=== PATIENT | female | born 1995 | race Caucasian/White ===

== ENCOUNTER 2018-06-30 12:33 | Emergency (ER) | payer OTHER ==
[2018-06-30] MEDS ORDERED: Metoclopramide HCl 10 MG/2 ML VIAL ONE (13:03)
[2018-06-30] MEDS ORDERED: Acetaminophen 500 MG TAB ONE (13:03)
[2018-06-30] MEDS ORDERED: diphenhydrAMINE 25 MG CAP ONE (13:03)
--- NOTE | 2018-06-30 15:13 | CT ---
CT OF BRAIN PERFORMED WIHTOUT CONTRAST ENHANCEMENT: HISTORY: Headache. FINDINGS: The ventricular and cisternal system is within normal limits. There are no signs of intracerebral he morrhage or extraaxial fluid collections. The mastoid air cells and visualized sinuses are clear. IMPRESSION: No acute intracranial abnormalities. POS: [facility]
== END 2018-06-30 15:12 | disposition home or self-care (01) ==
LOC: ERS 12:33
DX: R51 Headache (principal)
CPT/HCPCS: 70450; 96365; 96366; J2765

== ENCOUNTER 2020-06-27 22:41 | Day surgery (SDC) | payer SELFPAY ==
[2020-06-27 23:19] VITALS: BMI 48.9
[2020-06-27] MEDS ORDERED: hydrALAZINE 20 MG/ML VIAL SLOW IVP PRN (23:31)
[2020-06-27] MEDS ORDERED: Ondansetron PF 4 MG/2 ML Vial IVP PRN (23:33)
[2020-06-27] MEDS ORDERED: Lactated Ringer's 1,000 ML IV SCH ×2 (23:45)
[2020-06-28 00:13] LABS: #Eosinphils 0.1 thou/uL (0.0-0.7); #Lymphocytes 1.9 thou/uL (1.20-3.40); #Neutrophils 8.4 thou/uL (1.40-6.50); %Basophils 0.4 % (0.0-1.0); %Lymphocytes 16.5 % (21.0-51.0); %Monocytes 8.5 % (0.0-10.0); %Neutrophils 73.6 % (42.0-75.0); Hemoglobin 10.8 g/dL (12.0-16.0); Mean Corpuscular HGB CONC 33.9 g/dL (32.0-36.0); Mean Corpuscular Hemoglobin 25.9 pg (27.0-31.0); Mean Corpuscular Volume 76.2 fL (78.0-98.0); Mean Platelet Volume 7.7 fL (7.4-10.4); Platelet Count 416 thou/uL (130-400); RBC Distribution Width 13.1 % (11.5-14.5); Red Blood Cell (RBC) Count 4.17 mill/uL (4.20-5.40); White Blood Cell (WBC) Count 11.4 thou/uL (4.8-10.8)
[2020-06-28 00:26] LABS: ALT (SGPT) 15 U/L (8-55); AST (SGOT) 15 U/L (5-34); Albumin 3.3 g/dL (3.5-5.0); Alkaline Phosphatase 130 U/L (40-110); Anion Gap 15 mmol/L (10-20); BUN (Urea Nitrogen) 6 mg/dL (7.0-18.7); Bilirubin, Total 0.2 mg/dL (0.2-1.2); Calc. Creatinine Clearance 256 mL/min (70-130); Calcium 9.2 mg/dL (7.8-10.44); Carbon Dioxide 19 mmol/L (22-29); Chloride 107 mmol/L (98-107); Estimated GFR-MDRD Greater than 90; Globulin 3.9 g/dL (2.4-3.5); Glucose 101 mg/dL (70-105); Potassium 3.5 mmol/L (3.5-5.1); Protein, Total 7.2 g/dL (6.0-8.3); Sodium 137 mmol/L (136-145)
[2020-06-28 01:54] LABS: Bacteria/HPF None Seen HPF (None Seen); Bilirubin Negative (Negative); Blood, Urine Negative (Negative); Clarity Clear (Clear); Glucose, Urine (Dipstick) Normal (Negative); Ketone, Urine Negative (Negative); Leukocyte Negative Leu/uL (Negative); Nitrite Negative (Negative); Protein, Urine (Dipstick) Negative (Neg-Trace); RBC/HPF 0-3 HPF (0-3); Specific Gravity, Urine 1.008 (1.002-1.036); Urobilinogen Normal mg/dL (Less than 2); WBC/HPF 0-3 HPF (0-3); pH, Urine 6.5 (5.0-9.0)
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
[2020-06-28] MEDS ORDERED: FLU VACC QS2020-21(6MOS UP)/PF 60 MCG/0.5 ML SYRINGE IM ONE (21:00)
== END 2020-06-28 03:00 | disposition home or self-care (01) ==
LOC: L&D/OP 22:41
PROVIDERS: ATTEND Obstetrics & Gynecology
DX: O21.2 Late vomiting of pregnancy (principal); O99.891 Other specified diseases and conditions complicating pregnancy; R19.7 Diarrhea, unspecified; O10.913 Unspecified pre-existing hypertension complicating pregnancy, third trimester; O34.219 Maternal care for unspecified type scar from previous cesarean delivery; Z3A.32 32 weeks gestation of pregnancy
CPT/HCPCS: 36415; 80053; 81003; 85025; 96360; 96361; 96375; 99283; J2405

== ENCOUNTER 2020-06-29 02:02 | Day surgery (SDC) | payer SELFPAY ==
[2020-06-29] MEDS ORDERED: hydrALAZINE 20 MG/ML VIAL SLOW IVP PRN (03:40)
[2020-06-29 03:46] VITALS: BP 122/59; TEMP 99
--- NOTE | 2020-06-29 04:27 | PRG ---
DATE OF SERVICE: 06/29/2020 PRIMARY OB: Dr. Mikal Cota. CHIEF COMPLAINT: Nausea, vomiting, and diarrhea. HISTORY OF PRESENT ILLNESS: The patient is a 25-year-old, G3, P2 female with an intrauterine at 32 weeks and 3 days, presenting with 1-week history of diarrhea, large volume watery that she reports happens about twice an hour. The patient has been able to keep fluids down for the most part and crackers. She was evaluated last night here in Labor and Delivery, at which time she was noted to have a white count of 11.4, hemoglobin of 10.8, hematocrit of 31.8, platelets of 416,000, sodium of 137, potassium of 3.5, BUN of 6, and creatinine of 0.7. AST and ALT , and the urinalysis with a normal specific gravity of 1.008 and no bacteria, no white blood cells. The patient yesterday was prescribed Zofran ODT, by her primary provider after being discharged here. She took two tablets around 2 o'clock and had no more issues with vomiting and was able to go to sleep around 10 o'clock last night and then woke up again around 12:30 with nausea and vomiting again, so she came here upon the instructions of her physician. The patient did not try re-dosing because of the vomiting that she was having. The patient reports that she continues to have diarrhea about two times an hour, again large volume watery diarrhea. She denies fever, headache, chest pain, shortness of breath, constipation, any new rashes, hip problems, knee problems, or muscle weakness. She denies vaginal bleeding, leakage of fluid, or change in discharge. She denies urinary urgency or frequency. PAST MEDICAL HISTORY: Chronic hypertension on labetalol, anxiety, and migraines. PAST SURGICAL HISTORY: She has had two deliveries. SOCIAL HISTORY: Denies drug, alcohol, or tobacco use. ALLERGIES: NO KNOWN DRUG ALLERGIES. MEDICATIONS: 1. Labetalol 100 mg that she takes twice a day. 2. vitamins. OB LABS: Blood type is O positive. Antibody screen is negative. VDRL is nonreactive. Hepatitis B surface antigen nonreactive. HIV nonreactive. GC and chlamydia are negative. She is rubella immune. Her diabetes screen is 132. REVIEW OF SYSTEMS: Per HPI. PHYSICAL EXAMINATION: VITAL SIGNS: Blood pressure is 139/81 followed by 122/59, heart rate of 89, respiratory rate of 20, saturating 99% on room air, and temperature 99.0. GENERAL: She appears to be in no acute distress. She is alert, oriented, cooperative, and pleasant to interact with. HEAD: Normocephalic and atraumatic. LUNGS: Clear to auscultation bilaterally. HEART: Has regular rate and rhythm. ABDOMEN: Gravid, soft, and nontender. EXTREMITIES: Nontender and nonedematous. : Has been deferred. LABORATORY DATA: heart tracing shows the fetus with a baseline in the 120s with moderate long-term variability, positive 15 x 15 accelerations, no decelerations. Tocometer may have some irritability, difficult to interpret. The patient declines an IV fluids or IM medications and has declined any medication during her stay here. ASSESSMENT AND PLAN: The patient is a 25-year-old female with nausea, vomiting, and diarrhea. We have confirm that she was given that ODT version of the Zofran at home, for which she can take under her tongue if she could not able to swallow it. Given the length and the volume of diarrhea she is experiencing, we have planning on empirically treating her with azithromycin 500 mg a day for the next 5 days. She has been asked to follow up with Dr. Cota, her primary OB in about 2 days. She is being given instructions to use the Zofran under her tongue if she feels like she cannot tolerate swallowing it due to the nausea and vomiting. The patient in general has been able to stay well hydrated based on her urinalysis and her personal reports of urination. She tolerates crackers and fluids most of the day. Fetus has a category 1 tracing and reactive NST. Again, the patient has been counseled to follow up with Dr. Cota in 2 days and is going home with a prescription of azithromycin 500 mg one tablet a day, #5. Fetus has a category 1 tracing and reactive NST. Job ID: [id number] [facility]
[2020-06-29] MEDS ORDERED: FLU VACC QS2020-21(6MOS UP)/PF 60 MCG/0.5 ML SYRINGE IM ONE (21:00)
== END 2020-06-29 03:35 | disposition home health service (06) ==
LOC: L&D/OP 02:02
PROVIDERS: ATTEND Obstetrics & Gynecology
DX: O21.2 Late vomiting of pregnancy (principal); O99.891 Other specified diseases and conditions complicating pregnancy; R19.7 Diarrhea, unspecified; O10.913 Unspecified pre-existing hypertension complicating pregnancy, third trimester; O34.219 Maternal care for unspecified type scar from previous cesarean delivery; Z3A.32 32 weeks gestation of pregnancy; Z79.899 Other long term (current) drug therapy
CPT/HCPCS: 99282

== ENCOUNTER 2020-07-28 11:24 | Day surgery (SDC) | payer SELFPAY ==
[2020-07-28 12:09] VITALS: BMI 50.1
[2020-07-28 12:41] LABS: #Basophils 0.1 thou/uL (0.0-0.2); #Eosinphils 0.3 thou/uL (0.0-0.7); #Lymphocytes 2.3 thou/uL (1.20-3.40); #Monocytes 1.1 thou/uL (0.11-0.59); #Neutrophils 6.9 thou/uL (1.40-6.50); %Basophils 0.8 % (0.0-1.0); %Lymphocytes 21.6 % (21.0-51.0); %Monocytes 9.9 % (0.0-10.0); %Neutrophils 64.8 % (42.0-75.0); Mean Corpuscular HGB CONC 32.3 g/dL (32.0-36.0); Mean Corpuscular Hemoglobin 24.5 pg (27.0-31.0); Mean Corpuscular Volume 75.8 fL (78.0-98.0); Platelet Count 376 thou/uL (130-400); RBC Distribution Width 13.9 % (11.5-14.5); Red Blood Cell (RBC) Count 4.11 mill/uL (4.20-5.40); White Blood Cell (WBC) Count 10.7 thou/uL (4.8-10.8)
[2020-07-28 13:01] LABS: ALT (SGPT) Less than 7 U/L (8-55); AST (SGOT) 13 U/L (5-34); Albumin 3.3 g/dL (3.5-5.0); Alkaline Phosphatase 155 U/L (40-110); Anion Gap 13 mmol/L (10-20); BUN (Urea Nitrogen) 11 mg/dL (7.0-18.7); Bilirubin, Total 0.2 mg/dL (0.2-1.2); Calc. Creatinine Clearance 248 mL/min (70-130); Calcium 9.2 mg/dL (7.8-10.44); Carbon Dioxide 21 mmol/L (22-29); Chloride 107 mmol/L (98-107); Estimated GFR-MDRD Greater than 90; Globulin 3.8 g/dL (2.4-3.5); Glucose 93 mg/dL (70-105); Potassium 4.2 mmol/L (3.5-5.1); Protein, Total 7.1 g/dL (6.0-8.3); Sodium 137 mmol/L (136-145)
[2020-07-28] MEDS: hydrALAZINE 20 MG/ML VIAL SLOW IVP PRN ×2 (13:02→13:38)
[2020-07-28 13:21] LABS: Creatinine, Urine 174.98 mg/dL (47-110)
[2020-07-28] MEDS ORDERED: hydrALAZINE 20 MG/ML VIAL SLOW IVP SCH (14:30)
[2020-07-28] MEDS ORDERED: hydrALAZINE 20 MG/ML VIAL SLOW IVP PRN (14:30)
[2020-07-28] MEDS ORDERED: Labetalol 100 MG TAB PO SCH (14:30)
[2020-07-28] MEDS ORDERED: Betamet Acet/Betamet Na Ph 30 MG/5 ML VIAL IM SCH (15:00)
[2020-07-29] MEDS ORDERED: FLU VACC QS2020-21(6MOS UP)/PF 60 MCG/0.5 ML SYRINGE IM ONE (12:15)
== END 2020-07-28 18:01 | disposition home or self-care (01) ==
LOC: L&D/OP 11:24
PROVIDERS: ATTEND Obstetrics & Gynecology
DX: O13.9 Gestational [pregnancy-induced] hypertension without significant proteinuria, unspecified trimester (principal); O09.219 Supervision of pregnancy with history of pre-term labor, unspecified trimester; O34.219 Maternal care for unspecified type scar from previous cesarean delivery; Z3A.00 Weeks of gestation of pregnancy not specified; Z79.899 Other long term (current) drug therapy
CPT/HCPCS: 36415; 80053; 82570; 84156; 85025; J0360; J0702

== ENCOUNTER 2020-07-29 14:58 | Inpatient (IN) | payer OTHER, SELFPAY ==
[2020-07-29] MEDS ORDERED: Betamet Acet/Betamet Na Ph 30 MG/5 ML VIAL IM SCH (15:15)
[2020-07-29 15:53] VITALS: BMI 50.1
[2020-07-29] MEDS ORDERED: hydrALAZINE 20 MG/ML VIAL ONE (16:38)
[2020-07-29] MEDS ORDERED: Bicitra 30 ML UDCUP PO PRN (16:50)
[2020-07-29] MEDS ORDERED: Magnesium Sulfate 20 gm/500 ml 20 GM/500 ML BAG ONE (16:50)
[2020-07-29] MEDS ORDERED: Famotidine/PF 20 mg/2ml Vial SLOW IVP PRN (16:50)
[2020-07-29] MEDS ORDERED: Ondansetron PF 4 MG/2 ML Vial IVP PRN ×4 (16:52→19:46)
[2020-07-29] MEDS ORDERED: hydrALAZINE 20 MG/ML VIAL SLOW IVP PRN ×2 (16:52→19:46)
[2020-07-29] MEDS ORDERED: CEFAZOLIN 2 GM in Premix Bag 1 BAG IVPB SCH (17:00)
[2020-07-29] MEDS ORDERED: Labetalol HCl 100 MG/20 ML VIAL ONE (17:08)
[2020-07-29] MEDS ORDERED: Morphine PF 10 MG/10 ML VIAL ONE (17:09)
[2020-07-29] MEDS ORDERED: Labetalol HCl 100 MG/20 ML VIAL SLOW IVP PRN ×2 (17:10→17:19)
[2020-07-29] MEDS ORDERED: Ondansetron PF 4 MG/2 ML Vial ONE (17:10)
[2020-07-29] MEDS ORDERED: PHENYLEPHRINE-NS 100 MCG/ML 10 ML SYRINGE ONE (17:10)
[2020-07-29] MEDS ORDERED: Oxytocin 10 UNITS/ML VIAL ONE (17:10)
[2020-07-29] MEDS ORDERED: Dexamethasone 4 mg/ml Vial ONE (17:10)
[2020-07-29] MEDS ORDERED: Meperidine HCl/PF 25 MG/ML VIAL SLOW IVP PRN ×2 (17:22→19:21)
[2020-07-29] MEDS ORDERED: Naloxone HCl 0.4 mg/ml Vial IV PRN ×2 (17:22→19:21)
[2020-07-29] MEDS ORDERED: Naloxone HCl 0.4 mg/ml Vial IVP PRN ×4 (17:22→19:21)
[2020-07-29] MEDS ORDERED: Ketorolac Tromethamine 30 MG/ML VIAL IVP PRN ×2 (17:22→19:21)
[2020-07-29] MEDS ORDERED: HYDROmorphone 2 MG/ML VIAL SLOW IVP PRN ×2 (17:22→19:21)
[2020-07-29] MEDS ORDERED: Ondansetron HCl/PF 4 MG/2 ML Vial IVP PRN ×2 (17:22→19:21)
[2020-07-29] MEDS ORDERED: L&D-Morphine 4 MG/ML VIAL SLOW IVP PRN ×2 (17:22→19:21)
[2020-07-29] MEDS ORDERED: diphenhydrAMINE 50 MG/ML VIAL IVP PRN ×2 (17:22→19:21)
[2020-07-29] MEDS ORDERED: Promethazine HCl 25 MG/ML VIAL IM PRN ×3 (17:22→19:46)
[2020-07-29] MEDS ORDERED: Promethazine HCl 25 MG SUPP PR PRN ×2 (17:22→19:21)
[2020-07-29] MEDS ORDERED: Communication Order-Pharmacy FS SCH ×2 (17:30→19:30)
[2020-07-29] MEDS ORDERED: Ketorolac Tromethamine 30 MG/ML VIAL IVP SCH ×2 (17:30→19:30)
[2020-07-29 17:36] LABS: Hemoglobin 9.6 g/dL (12.0-16.0); Mean Corpuscular HGB CONC 31.6 g/dL (32.0-36.0); Mean Corpuscular Volume 75.9 fL (78.0-98.0); Mean Platelet Volume 8.4 fL (7.4-10.4); Platelet Count 401 thou/uL (130-400); RBC Distribution Width 14.1 % (11.5-14.5); Red Blood Cell (RBC) Count 4.02 mill/uL (4.20-5.40); White Blood Cell (WBC) Count 12.8 thou/uL (4.8-10.8)
--- NOTE | 2020-07-29 17:39 | PDOC.LDHP ---
Labor and Delivery H&P HPI: 25 y/o at 36 and 5/7 weeks, followed for morbid obesity, CHTN, Previous x 2, presents for 2nd dose of steroids today, but repeat blood pressures hers in severe range, and quickly deteriorating. We will proceed with tonight. Current gestational age (weeks): 36 Due date: 08/21/02 Grav: 3 Para: 2 Current complications: hypertension, other (Morbid Obesity) Current medications: pre-mildred vitamins, other (Labetolol 100mg po BID) Previous surgical history: low tranverse CS Allergies/Adverse Reactions: Allergies Allergy/AdvReac Type Severity Reaction Status Date / Time No Known Allergies Allergy Verified 07/29/20 15:50 Social history: none - Physical Exam Vital signs reviewed and normal: yes General: NAD, resting Heart: RRR Lungs: CTAB Abdomen: gravid Extremeties: no edema FHT: category 1 - Assessment L&D Assessment: scheduled repeat section - Plan Plan: admit to L&D, to OR for section, magnesium for seizure prophylaxis
[2020-07-29 18:08] LABS: HBSAg Index 0.16 S/CO (0-0.99); Hep B Surf Ag Non-Reactive S/CO (NonReactive); Syphilis Antibody Nonreactive (Nonreactive); Syphilis Antibody Index 0.03 S/CO (<1.00 Non-Reactive)
[2020-07-29 18:35] LABS: SARS-CoV-2 NAA Rapid Test Not Detected (NotDetected)
[2020-07-29] MEDS ORDERED: Lanolin Ointment 7 GM TUBE TOP PRN (19:46)
[2020-07-29] MEDS ORDERED: Misoprostol 200 MCG TAB PR PRN (19:46)
[2020-07-29] MEDS ORDERED: Bisacodyl 10 MG SUPP PR PRN (19:46)
[2020-07-29] MEDS ORDERED: Simethicone Chewable 80 MG TAB PO PRN (19:46)
[2020-07-29] MEDS ORDERED: NS / Oxytocin 40 units/1000ml 1,000 ML IV SCH (20:00)
[2020-07-29] MEDS: Docusate Calcium (SURFAK) 240 MG CAP PO SCH (23:00)
[2020-07-30] MEDS ORDERED: Magnesium Sulfate 20 gm/500 ml 20 GM/500 ML BAG IVPB PRN (01:30)
[2020-07-30] MEDS ORDERED: Magnesium Sulfate 20 gm/500 ml 4 GM/100 ML BAG IVPB ONE (01:30)
[2020-07-30] MEDS ORDERED: Calcium Gluc 4.6 MEQ/10 ML (100 MG/ML) IV PRN (01:30)
[2020-07-30] MEDS ORDERED: Enoxaparin Sodium 40 MG/0.4 ML SYRINGE SC SCH (04:00)
[2020-07-30 06:47] LABS: Hemoglobin 8.3 g/dL (12.0-16.0); Mean Corpuscular HGB CONC 32.1 g/dL (32.0-36.0); Mean Corpuscular Hemoglobin 24.3 pg (27.0-31.0); Mean Corpuscular Volume 75.7 fL (78.0-98.0); Platelet Count 411 thou/uL (130-400); RBC Distribution Width 14.2 % (11.5-14.5); White Blood Cell (WBC) Count 15.9 thou/uL (4.8-10.8)
[2020-07-30] MEDS ORDERED: HYDROcodone/Acetaminophen 5/325 mg Tablet PO PRN ×2 (07:30)
[2020-07-30] MEDS ORDERED: Measles/Mumps/Rubella 10 MCG/0.5 ML VIAL SC ONE (09:00)
[2020-07-30] MEDS ORDERED: Adacel (T-DAP) 0.5 ML SYRINGE IM ONE (09:00)
[2020-07-30] MEDS ORDERED: FLU VACC QS2020-21(6MOS UP)/PF 60 MCG/0.5 ML SYRINGE IM ONE (09:00)
[2020-07-30] MEDS ORDERED: Varicella virus, LIVE 0.5 ML VIAL SC ONE (09:00)
[2020-07-30 10:00] LABS: Calc. Creatinine Clearance 239 mL/min (70-130)
[2020-07-30] MEDS: Enoxaparin Sodium 40 MG/0.4 ML SYRINGE SC SCH (10:34)
[2020-07-30] MEDS: Docusate Calcium (SURFAK) 240 MG CAP PO SCH ×2 (10:36→22:11)
[2020-07-30] MEDS: Ibuprofen 800 MG TAB PO SCH ×2 (13:17→22:11)
[2020-07-30] MEDS: Labetalol 100 MG TAB PO SCH (14:12)
--- NOTE | 2020-07-30 17:04 | PDOC.PP ---
Post Progress Note Post Day #: 1 PO intake tolerated: yes Flatus: yes Ambulation: yes Vital Signs (12 hours) Temp Pulse Resp BP Pulse Ox 07/30/20 15:45 98.0 F 84 16 124/63 100 07/30/20 14:12 86 Weight Weight 301 lb - Physical Examination General: NAD Cardiovascular: no m/r/g, RRR Respiratory: clear to auscultation bilaterally, non-labored breathing Abdominal: + bowel sounds, lochia, no distention, appropriately TTP Extremities: negative homans (B) Skin: CS incision dry & intact, no rash Neurological: no gross focal deficits (Patient looks remarkably stable and back to baseline in just 24 hours. Magnesium is DC'ed. Possible DC to home tomorrow. Clinic F/U in 72 hours.) Psychiatric: A&Ox3, normal affect Result Diagrams: 07/30/20 06:35 07/30/20 09:27 Additional Labs: Post Labs Hep Bs Antigen Non-Reactive S/CO (NonReactive) 07/29/20 17:08 Blood Type O POSITIVE 07/29/20 17:26
--- NOTE | 2020-07-30 23:12 | OP ---
DATE OF PROCEDURE: 07/29/2020 SURGEON: Mikal Cota MD PREOPERATIVE DIAGNOSES: 1. Intrauterine at 36 weeks and 5 days with a history of chronic hypertension which quickly escalated to severe preeclampsia. 2. Hypertensive crisis. POSTOPERATIVE DIAGNOSES: 1. Intrauterine at 36 weeks and 5 days with a history of chronic hypertension which quickly escalated to severe preeclampsia. 2. Hypertensive crisis. PROCEDURE PERFORMED: Repeat low-transverse section. FINDINGS: Viable male infant weighing 3067 g or 6 pounds 12 ounces. Apgars 8 and 9. QUANTITATIVE BLOOD LOSS: 135 mL. COMPLICATIONS: None. DETAILS OF THE PROCEDURE: The patient was consented and taken back to the operating room where spinal anesthesia was found to be adequate. She was then prepped and draped in the normal sterile fashion. A timeout was performed by the entire operative team. The incision was then marked with a marking pen tested using sharp pickups. An incision was then made with a scalpel. The incision was carried through the adipose tissue down to the underlying rectus fascia using both sharp dissection as well as cautery. Once the fascia was identified, it was incised in the midline and then the fascial incision was carried through in both lateral directions using sharp as well as cautery dissection techniques. Next, the superior aspect of the rectus fascia was grasped with 2 Vincent clamps, which was tented up and the rectus muscles were dissected off using blunt dissection as well as cautery dissection. Similarly, the inferior aspect of the fascial incision was grasped with 2 Vincent clamps, tented up and the rectus muscles were dissected off bluntly as well as sharply. Next, the rectus muscles were in the midline and the peritoneum identified. The peritoneum was then carefully grasped with 2 hemostats and entered sharply. The peritoneal incision was extended superiorly and inferiorly and bladder blade was placed in the lower abdomen. At this point, the uterus was identified and the bladder flap was then developed using pickups with teeth as well as Metzenbaum scissors in both lateral directions. The bladder flap was then dissected downwards using the photoengraving machine operator/tender's finger as well as Metzenbaum scissors. The bladder blade was replaced. The lower uterine segment was then identified and entered sharply using a clean scalpel. The uterine incision was then dissected downwards until thin layer of muscle remained and this was entered bluntly using a hemostat to avoid any injury to the baby. The uterine incision was then stretched using two fingers in both lateral directions. An amniotomy was performed artificially using a hemostat and the baby was delivered using fundal pressure in a gentle fashion. Once out, the baby's mouth and nose were bulb suctioned, cord clamped and cut, and the baby was handed to waiting attendants. Next, the uterus was exteriorized, cleared of all clots and debris and the uterine incision was repaired with #1 Monocryl in a running locking fashion. A 2nd suture of the same type was used to obtain complete hemostasis at the uterine incision. The bladder flap was reapproximated using 3-0 Monocryl. Next, patient's left and right adnexa were inspected and appeared to be within normal limits. The posterior cul-de-sac was blotted dry and hemostasis assured. One more look at the uterine incision demonstrated hemostasis. Next, the uterus was replaced back within the abdomen. The peritoneum was reapproximated using 2-0 Monocryl without difficulty. The rectus muscles were then allowed to come back together and 0 chromic was used to aid in reapproximation of the muscle as necessary. The rectus fascia was then reapproximated in a running fashion using 0 Vicryl suture. The adipose tissue was then examined and appeared to be well approximated without any obvious separations. Finally, the skin was reapproximated with 3-0 Monocryl on a Fili needle without difficulty and Dermabond adhesive was applied to the skin. Once the glue was dry, the drapes were removed and the patient was transferred to an ambulatory bed where she was taken to recovery awake and in stable condition. Sponge, lap, and needle counts were correct x3. Job ID: [id number] [facility]
[2020-07-31] MEDS: Labetalol 100 MG TAB PO SCH ×2 (01:04→14:22)
[2020-07-31] MEDS: Ibuprofen 800 MG TAB PO SCH ×2 (05:38→14:22)
[2020-07-31] MEDS ORDERED: Ibuprofen 800 MG TAB PO SCH (06:00)
[2020-07-31] MEDS: Docusate Calcium (SURFAK) 240 MG CAP PO SCH (09:22)
[2020-07-31] MEDS: Enoxaparin Sodium 40 MG/0.4 ML SYRINGE SC SCH (09:28)
[2020-07-31 16:59] VITALS: BP 137/68; TEMP 98.4
--- NOTE | 2020-08-03 03:52 | PQF ---
CLINICAL DOCUMENTATION CLARIFICATION FORM: Dear : Mikal Cota Date / Time: 08/03/2020350 Please exercise your independent, professional judgment in responding to the clarification form. Clinical indicators are provided on the bottom of this form for your review In your clinical opinion based on clinical findings below, can you please specify hypertensive crisis if: Please check appropriate box(es): [ ] Emergency [ ] Urgency [ x] Other diagnosis, please specify severe preeclampsia [ ] Unable to determine Physician Signature: Date/Time: For continuity of documentation, please document condition throughout progress notes and discharge summary. Thank You. To be completed by CDI/Coding staff for physician review: Present Clinical Indicators - Signs / Symptoms / Labs Results and Location in Medical Record [X] Pulse 83, Resp 16, Temp 98.3 Vital signs 07/29 [X] BP 156/92; 115/60; 124/63; 109/53; 144/73 Vital signs 07/29-07/30 [X] Hypertensive Crisis Operative report p 07/29 Dr Cota [X] blood pressure in severe range and quickly deteriorating H&P p1 07/29 Dr Cota Present Risk Factors Results and Location in Medical Record [X] 36 weeks IUP Operative report p 07/29 Dr Cota [X] Hx of Chronic HTN with quickly escalated to severe pre-eclampsia Operative report p 07/29 Dr Cota [X] s/p CS Operative report p 12 Dr Cota [X] Morbid obesity H&P p1 / Dr Cota Present Treatments Results and Location in Medical Record [X] IV Magnesium Sulfate 4 gm NOV 05 [X] IV Normodyne 40 mg NOV 05 [X] IV Apresolone 20 mg NOV 05 CDS/It Teacher Signature: Indira Elaine Phone #: [phone] Date/Time: 08/03/2020350 This is a permanent part of the Medical Record [facility]
== END 2020-07-31 17:10 | disposition home or self-care (01) | DRG 787 ==
LOC: L&D/OP 14:58 → L&D 16:51 → 3SW 07-30 16:12
PROVIDERS: ADMIT Obstetrics & Gynecology; ATTEND Obstetrics & Gynecology
PROC: 10D00Z1 Extraction of Products of Conception, Low, Open Approach (ICD-10-PCS; principal; 2020-07-29)
DX: O11.4 Pre-existing hypertension with pre-eclampsia, complicating childbirth (principal); I16.9 Hypertensive crisis, unspecified; Z3A.36 36 weeks gestation of pregnancy; Z37.0 Single live birth; O34.211 Maternal care for low transverse scar from previous cesarean delivery; Z20.828 Contact with and (suspected) exposure to other viral communicable diseases; O99.214 Obesity complicating childbirth; E66.01 Morbid (severe) obesity due to excess calories; O10.02 Pre-existing essential hypertension complicating childbirth; O99.42 Diseases of the circulatory system complicating childbirth; Z28.21 Immunization not carried out because of patient refusal
CPT/HCPCS: 36415; 51702; 82565; 85027; 86780; 86850; 86900; 86901; 87340; 99285; J0360; J0690; J1100; J1200; J1650; J2270; J2405; J3475; U0002

== ENCOUNTER 2020-08-01 15:55 | Inpatient (IN) | payer OTHER ==
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
[2020-08-01 16:35] VITALS: BMI 54.5
[2020-08-01] MEDS ORDERED: hydrALAZINE 20 MG/ML VIAL ONE (16:46)
[2020-08-01] MEDS ORDERED: Ondansetron PF 4 MG/2 ML Vial IVP PRN (16:56)
[2020-08-01] MEDS ORDERED: hydrALAZINE 20 MG/ML VIAL SLOW IVP PRN (16:56)
[2020-08-01] MEDS ORDERED: Docusate 100 MG CAP PO PRN (16:56)
[2020-08-01] MEDS ORDERED: Promethazine HCl 25 MG/ML VIAL IM PRN (16:56)
[2020-08-01] MEDS ORDERED: Calcium Gluconate 4.6 MEQ in Sodium Chloride 0.9% 100 ML IVPB PRN (16:56)
[2020-08-01] MEDS ORDERED: Magnesium Sulfate 20 GM/WATER 500 ML BAG IVPB SCH (17:00)
[2020-08-01] MEDS ORDERED: Magnesium Sulfate 20 gm/500 ml 20 GM/500 ML BAG ONE (17:26)
[2020-08-01] MEDS: Lactated Ringer's 1,000 ML IV SCH (17:42)
[2020-08-01] MEDS: Magnesium Sulfate 20 gm/500 ml 20 GM/500 ML BAG IVPB SCH (17:50)
[2020-08-01 17:56] LABS: #Basophils 0.1 thou/uL (0.0-0.2); #Eosinphils 0.4 thou/uL (0.0-0.7); #Lymphocytes 2.8 thou/uL (1.20-3.40); #Monocytes 1.2 thou/uL (0.11-0.59); #Neutrophils 7.8 thou/uL (1.40-6.50); %Basophils 0.6 % (0.0-1.0); %Eosinophils 3.1 % (0.0-10.0); %Lymphocytes 22.9 % (21.0-51.0); %Monocytes 9.6 % (0.0-10.0); %Neutrophils 63.8 % (42.0-75.0); Hemoglobin 8.3 g/dL (12.0-16.0); Mean Corpuscular HGB CONC 32.1 g/dL (32.0-36.0); Mean Corpuscular Hemoglobin 24.5 pg (27.0-31.0); Mean Corpuscular Volume 76.4 fL (78.0-98.0); Mean Platelet Volume 7.7 fL (7.4-10.4); Platelet Count 440 thou/uL (130-400); RBC Distribution Width 14.5 % (11.5-14.5); Red Blood Cell (RBC) Count 3.37 mill/uL (4.20-5.40); White Blood Cell (WBC) Count 12.2 thou/uL (4.8-10.8)
[2020-08-01 18:17] LABS: ALT (SGPT) 20 U/L (8-55); AST (SGOT) 23 U/L (5-34); Albumin 3.3 g/dL (3.5-5.0); Alkaline Phosphatase 106 U/L (40-110); Anion Gap 14 mmol/L (10-20); BUN (Urea Nitrogen) 20 mg/dL (7.0-18.7); Bilirubin, Total 0.2 mg/dL (0.2-1.2); Calc. Creatinine Clearance 252 mL/min (70-130); Carbon Dioxide 25 mmol/L (22-29); Chloride 103 mmol/L (98-107); Globulin 3.4 g/dL (2.4-3.5); Glucose 73 mg/dL (70-105); Protein, Total 6.7 g/dL (6.0-8.3); Sodium 138 mmol/L (136-145)
[2020-08-01 18:33] LABS: Creatinine, Urine 31.94 mg/dL (47-110)
[2020-08-01] MEDS: Labetalol 100 MG TAB PO SCH (20:19)
--- NOTE | 2020-08-02 06:55 | PDOC.EVN ---
Event Note - Event Note Event Note: Denies MONTOYA, visual changes. BPs improved this AM; 120-130s/70-80s. Labs on admit were WNL except for + urine protein. Plan: Continue on Mg x 24 hrs total, continue Labetalol 200 mg BID.
[2020-08-02] MEDS ORDERED: FLU VACC QS2020-21(6MOS UP)/PF 60 MCG/0.5 ML SYRINGE IM ONE (09:00)
[2020-08-02] MEDS: Lactated Ringer's 1,000 ML IV SCH (09:14)
[2020-08-02] MEDS: Labetalol 100 MG TAB PO SCH ×2 (09:14→21:19)
[2020-08-02] MEDS: Ferrous Sulfate 325 MG TAB PO SCH (09:14)
[2020-08-02] MEDS: Magnesium Sulfate 20 gm/500 ml 20 GM/500 ML BAG IVPB SCH (11:10)
--- NOTE | 2020-08-02 16:57 | PDOC.EVN ---
Event Note - Event Note Event Note: 25yo s/p repeat on 07/29/2020 at 36 weeks 5/7 days, presents through ED for elevated blood pressures. Patient had a diagnosis of severe preeclampsia, and than presented tohe ED with initial BP 174/104. Was on Labetalol 100mg BID during . She was discharged on 100mg BID and states she has been compliant. Urine Protein ratio is abnormal. Magnesium sulfate started by Dr. Morrison last night. BPs have now improved. We plan to DC Magnesium Sulfate at the 24 hours, and have patient back on Labetolo - likely 200mg po BID. Possible DC to home tomorrow once BP appear stable. Patient voices she is anxious to home home SUSAN, and hints at leaving for home AMA tonight if she is not released.
[2020-08-03] MEDS: Labetalol 100 MG TAB PO SCH (07:56)
[2020-08-03] MEDS: Ferrous Sulfate 325 MG TAB PO SCH (07:56)
[2020-08-03] MEDS: Lactated Ringer's 1,000 ML IV SCH (08:16)
[2020-08-03 11:40] VITALS: BP 143/75; TEMP 99.2
--- NOTE | 2020-08-03 16:45 | PDOC.EVN ---
Event Note - Event Note Event Note: 25yo s/p repeat on 07/29/2020 at 36 weeks 5/7 days This admission, she presented through ED on for elevated blood pressures. Patient already had a diagnosis of severe preeclampsia, but than presented to the ED with initial BP 174/104. She was on Labetalol 100mg BID during . She was discharged on 100mg BID and states she has been compliant. Urine Protein ratio is abnormal. Magnesium sulfate started by Dr. Morrison, and 24 hours completed last night. BPs have now improved on po Labetalol - 200mg po BID. DC to home today.
== END 2020-08-03 14:25 | disposition home or self-care (01) | DRG 776 ==
LOC: ERS 15:55 → SDC 15:55 → L&D/OP 16:07 → L&D 16:56 → 3SW 08-02 21:26
PROVIDERS: ADMIT Obstetrics & Gynecology; ATTEND Obstetrics & Gynecology
DX: O11.5 Pre-existing hypertension with pre-eclampsia, complicating the puerperium (principal); O10.03 Pre-existing essential hypertension complicating the puerperium; Z20.828 Contact with and (suspected) exposure to other viral communicable diseases
CPT/HCPCS: 36415; 80053; 82570; 84156; 85025; 86850; 86900; 86901; J0360; J3475